=== PATIENT | female | born 1965 | race American Indian/Alaskan Native ===

== ENCOUNTER 2017-03-23 08:23 | Outpatient (CLI) | payer MEDICAID ==
--- NOTE | 2017-03-23 14:55 | Mammography Report ---
LEFT DIGITAL SCREENING MAMMOGRAM with CAD: 03/23/17 08:23:00 CLINICAL: Routine screening. Breast cancer survivor status post right mastectomy. COMPARISON:01/11/16 FINDINGS: The breast is heterogeneously dense, which may obscure small masses.No mass, architectural distortion or suspicious calcifications. IMPRESSION: No mammographic evidence of malignancy. BI-RADS CATEGORY: 1 - - Negative RECOMMENDATION: Routine mammographic screening in one year. ACR BI-RADS MAMMOGRAPHIC CODES: 0 = Needs additional imaging evaluation; 1 = Negative; 2 = Benign; 3 = Probably benign; 4 = Suspicious; 5 = Malignant; 6 = Known biopsy-proven malignancy COMMENT: 1. Dense breast tissue, i.e., adenosis, fibrocystic changes, etc., may obscure an underlying neoplasm. 2. Approximately 10% of cancers are not detected with mammography. 3. A negative mammography report should not delay biopsy if a clinically suspicious mass is present. COMMENT: Patient follow-up letters are generated via our [employer] application.
== END 2017-03-23 08:24 | disposition home or self-care (01) ==
LOC: SPVWC 08:23
PROVIDERS: ATTEND Internal Medicine
DX: Z12.31 Encounter for screening mammogram for malignant neoplasm of breast (principal); Z90.11 Acquired absence of right breast and nipple
CPT/HCPCS: 77067; G0202

== ENCOUNTER 2018-03-26 08:08 | Outpatient (CLI) | payer MEDICAID ==
--- NOTE | 2018-03-26 16:07 | Mammography Report ---
LEFT DIGITAL SCREENING MAMMOGRAM with CAD: 03/26/18 08:08:00 CLINICAL: Routine screening. Breast cancer survivor status post right mastectomy. COMPARISON:03/23/17 FINDINGS: The breast is heterogeneously dense, which may obscure small masses.No mass, suspicious architectural distortion or suspicious calcifications. IMPRESSION: No mammographic evidence of malignancy. BI-RADS CATEGORY: 1 - - Negative RECOMMENDATION: Routine screening in one year. ACR BI-RADS MAMMOGRAPHIC CODES: 0 = Needs additional imaging evaluation; 1 = Negative; 2 = Benign; 3 = Probably benign; 4 = Suspicious; 5 = Malignant; 6 = Known biopsy-proven malignancy COMMENT: 1. Dense breast tissue, i.e., adenosis, fibrocystic changes, etc., may obscure an underlying neoplasm. 2. Approximately 10% of cancers are not detected with mammography. 3. A negative mammography report should not delay biopsy if a clinically suspicious mass is present. COMMENT: Patient follow-up letters are generated via our [employer] application.
== END 2018-03-26 08:09 | disposition home or self-care (01) ==
LOC: SPVWC 08:08
PROVIDERS: ATTEND Internal Medicine
DX: Z12.31 Encounter for screening mammogram for malignant neoplasm of breast (principal)

== ENCOUNTER 2019-03-25 13:30 | Outpatient (CLI) | payer MEDICARE ==
--- NOTE | 2019-03-25 15:24 | Ultrasound Report ---
LEFT DIAGNOSTIC MAMMOGRAM CAD AND LEFT BREAST ULTRASOUND HISTORY: Palpable lump in the left axilla which has gotten smaller after antibiotic therapy. COMPARISON: 03/26/2018 FINDINGS: Mammogram: Digital CC and MLO views demonstrate a heterogeneously dense breasts, which may obscure s mall masses. No mass, architectural distortion or suspicious calcifications. No mammographic finding at a left axillary palpable marker. Breast Ultrasound: Sonographic evaluation of the left axilla demonstrated a benign hypoechoic intrad ermal lesion measuring 8 x 3 x 6 mm. It correlates with the palpable lump. No lymphadenopathy. IMPRESSION Negative mammogram and a benign intradermal skin lesion of the left axilla. If the clinical examination remains stable, recommend routine mammography. BIRADS 2: Benign According to the [employer], yearly mammograms are recommended starting at age 40 and continuing as long as a woman is in good health. Clinical Breast Exams should be part of a period ic health exam-about every 3 years for women in their 20s and 30s and every year for women 40 and ove r. Breast self exam is an option for women starting in their 20s. Any breast change noted on a breast self exam should be reported promptly to the patient's healthcare provider. Breast MRI is recommende d for women with an approximately 20-25% or greater lifetime risk of breast cancer, including women w ith a strong family history of breast or ovarian cancer and women who have been treated for Hodgkin's disease. A negative Mammography report should not discourage follow up or biopsy of a clinically significant f inding and/or abnormality. Dense breast tissue may obscure small neoplasms. Signer Name: Jarvis Aguilar MD Signed: 03/25/2019 4:19 PM Workstation Name: [id number]
== END 2019-03-25 13:31 | disposition home or self-care (01) ==
LOC: SPVWC 13:30
PROVIDERS: ATTEND Internal Medicine
DX: N63.22 Unspecified lump in the left breast, upper inner quadrant (principal)

== ENCOUNTER 2021-03-12 10:35 | Outpatient (CLI) | payer MEDICARE ==
--- NOTE | 2021-03-12 12:42 | Mammography Report ---
DIGITAL DIAGNOSTIC MAMMOGRAM WITH CAD WITH TOMOSYNTHESIS, 03/12/2021 CLINICAL INFORMATION / INDICATION: Patient has a history of right breast cancer status post right mas tectomy. Patient has no current complaints. TECHNIQUE: Digital bilateral mammographic imaging was performed. This examination was interpreted with the benefit of Computer-aided Detection analysis. COMPARISON: Prior mammograms 03/26/2020, 03/25/2019, and 03/26/2018 FINDINGS: Breast Density: The breasts are heterogeneously dense, which may obscure small masses. No dominant mass, suspicious calcifications or architectural distortion in either breast. There is stable benign postsurgical change related to right mastectomy. There has been no significant change compared with the prior examinations. IMPRESSION: No mammographic evidence of malignancy. Follow up recommendation: Routine yearly BI-RADS Category 2: Benign. A "normal" or negative report should not discourage follow up or biopsy of a clinically significant f inding. A written summary of these findings will be mailed to the patient. The patient will be entered into a mammography reporting system which will generate a reminder letter for the patient's next appointmen t at the appropriate interval. According to the [employer], yearly mammograms are recommended starting at age 40 and continuing as long as a woman is in good health. Breast MRI is recommended for women with an raya roximately 20-25% or greater lifetime risk of breast cancer, including women with a strong family his tory of breast or ovarian cancer and women who have been treated for Hodgkin's disease. Signer Name: Angelika Coleman MD Signed: 03/12/2021 12:37 PM Workstation Name: [id number]
--- NOTE | 2021-03-15 09:04 | Mammography Report ---
Please refer to the diagnostic mammogram report from the same day with separate accession number [id number]. Signer Name: Angelika Coleman MD Signed: 03/15/2021 8:59 AM Workstation Name: [email or web address]
== END 2021-03-12 10:36 | disposition home or self-care (01) ==
LOC: SPVWC 10:35
PROVIDERS: ATTEND Internal Medicine
DX: R92.8 Other abnormal and inconclusive findings on diagnostic imaging of breast (principal)
CPT/HCPCS: 77066; G0279

== ENCOUNTER 2022-04-06 09:12 | Outpatient (CLI) | payer MEDICARE ==
--- NOTE | 2022-04-08 09:44 | Mammography Report ---
DIGITAL SCREENING MAMMOGRAM WITH CAD, 04/06/2022 CLINICAL INFORMATION / INDICATION: Routine screening mammography. TECHNIQUE: Digital left 2D mammography was obtained in the craniocaudal and mediolateral oblique pro jections. This examination was interpreted with the benefit of Computer-Aided Detection analysis. COMPARISON: 03/12/2021, 03/26/2020 FINDINGS: Breast Density: The breasts are heterogeneously dense, which may obscure small masses. No dominant mass, suspicious calcifications, or architectural distortion in the left breast. IMPRESSION: No mammographic evidence of malignancy. Follow up recommendation: Routine yearly screening mammogram. - The ACR recommends yearly screening MRI in patients with a personal history of breast cancer who sharma ve dense fibroglandular tissue as well in patients who were diagnosed with breast cancer under the ag e of 50. BI-RADS Category 1: NEGATIVE A "normal" or negative report should not discourage follow up or biopsy of a clinically significant f inding. A written summary of these findings will be mailed to the patient. The patient will be entered into a mammography reporting system which will generate a reminder letter for the patient's next appointmen t at the appropriate interval. The [employer] recommends yearly mammograms starting at age 40 and continuing as l oleksandr as a woman is in good health. Breast MRI is recommended for women with an approximate 20-25% or greater lifetime risk of breast cancer, including women with a strong family history of breast or ova jem cancer or who have been treated for Hodgkin's disease. Signer Name: Chavo Barbosa MD Signed: 04/08/2022 9:39 AM Workstation Name: [id number]
== END 2022-04-06 09:13 | disposition home or self-care (01) ==
LOC: SPVWC 09:12
PROVIDERS: ATTEND Internal Medicine
DX: Z12.31 Encounter for screening mammogram for malignant neoplasm of breast (principal)